=== PATIENT | female | born 1960 | race Two or more races ===

== ENCOUNTER 2024-12-29 16:50 | Emergency (ER) | payer BC, OTHER ==
[~2024-12-29] VITALS: Ht 167.6 cm; Wt 74.8 kg
[2024-12-29 17:44] VITALS: BP 128/79; TEMP 98.3
[2024-12-29] MEDS ORDERED: CIPR500T5 PO (18:34)
[2024-12-29 18:39] VITALS: O2SAT 98
== END 2024-12-29 18:42 | disposition home or self-care (01) ==
LOC: ER 16:58
DX: H61.001 Unspecified perichondritis of right external ear (principal); H92.01 Otalgia, right ear; R51.9 Headache, unspecified; Z60.2 Problems related to living alone